=== PATIENT | female | born 1980 ===

== ENCOUNTER 2017-01-10 09:53 | Emergency (ER) | payer MEDICAID ==
[~2017-01-10] VITALS: Ht 180.3 cm; Wt 96.6 kg
[2017-01-10 10:01] VITALS: BP 114/70
[2017-01-10] MEDS ORDERED: MORPHINE SULFATE 4 MG/ML SYRG IV ONE (10:45)
[2017-01-10] MEDS ORDERED: ALPRAZolam 0.5 MG TAB PO ONE (11:45)
[2017-01-10 11:47] LABS: Basophils # (auto) 0 uL; Basophils % (auto) 0.9 % (0.0-2.0); Eosinophils # (auto) 0.1 uL; Eosinophils % (auto) 1.3 % (0.0-7.0); Hematocrit 39.1 % (36.0-46.0); Hemoglobin 13.1 g/dL (12.2-16.2); Lymphocytes # (auto) 1.7 uL; Lymphocytes % (auto) 35.1 % (10.0-50.0); Mean Corpuscular Hemoglobin 30.5 pg (28.0-32.0); Mean Corpuscular Hgb Conc. 33.4 g/dL (32.0-36.0); Mean Corpuscular Volume 91.4 fL (80.0-100.0); Mean Platelet Volume 9.3 fL (7.4-10.4); Monocytes # (auto) 0.3 uL; Monocytes % (auto) 6.7 % (0.0-12.0); Neutrophils # (auto) 2.8 uL; Platelet Count (auto) 290 10^3/uL (140-450); Red Cell Distribution Width 14.4 % (11.6-16.0); White Blood Cell 4.9 10^3/uL (4.4-10.8)
[2017-01-10 11:51] LABS: Albumin 3.9 g/dL (3.4-5.0); BUN/Creatinine Ratio 12.2; Calcium 8.6 mg/dL (8.5-10.1); Potassium 3.5 mmol/L (3.5-5.1)
[2017-01-10 12:03] LABS: Bilirubin, Total 0.4 mg/dL (0.2-1.0); Total Protein 7.6 g/dL (6.4-8.2)
== END 2017-01-10 12:34 | disposition home or self-care (01) ==
LOC: ER 10:09
DX: R51 Headache (principal); F10.120 Alcohol abuse with intoxication, uncomplicated; M25.562 Pain in left knee; M25.561 Pain in right knee; V49.59XA Passenger injured in collision with other motor vehicles in traffic accident, initial encounter; Y93.89 Activity, other specified; Y99.8 Other external cause status; Y92.410 Unspecified street and highway as the place of occurrence of the external cause
CPT/HCPCS: 36415; 70450; 73560; 80053; 80320; 85025; 96374; 99285; J2270